=== PATIENT | female | born 2000 | race Caucasian/White ===

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

== ENCOUNTER 2022-07-20 14:02 | Emergency (ER) | payer OTHER ==
[2022-07-20 14:16] VITALS: BP 110/68; PULSE 98; RESP 18; TEMP 98.2; BMI 22.8
[2022-07-20] MEDS ORDERED: IBUPROFEN 600 MG TABLET (FP) PO ONE ×2 (14:29→15:11)
[2022-07-20] MEDS ORDERED: DICLOXACILLIN SODIUM 250 MG CAPSULE PO ONE (15:26)
== END 2022-07-20 15:40 | disposition home or self-care (01) ==
LOC: JERFT 14:02
DX: N61.0 Mastitis without abscess (principal)
CPT/HCPCS: 99283-25

== ENCOUNTER 2023-07-10 09:06 | Emergency (ER) | payer OTHER ==
[2023-07-10 09:12] VITALS: TEMP 98; BMI 23.2
[2023-07-10] MEDS ORDERED: ACETAMINOPHEN 1000 MG/100 ML BAG IVPB ONE ×2 (09:54→16:00)
[2023-07-10] MEDS ORDERED: SODIUM CHLORIDE 1,000 ML IV STA (09:54)
[2023-07-10] MEDS ORDERED: ACETAMINOPHEN INJECTION 100 ML IVPB ONE (09:58)
[2023-07-10 10:01] LABS: BASO % 0.4 % (0-2.0); EOS % 0.6 % (0-4.5); HEMATOCRIT 36.9 % (32.4-45.2); HEMOGLOBIN 12.2 GM/dL (10.7-15.3); LYMPH % 27.1 % (8-40); MCH 29.6 pg (25.7-33.7); MEAN CELL VOLUME 89.6 fl (80-96); MEAN PLT VOLUME 7.3 fl (7.5-11.1); MONO % 8.3 % (3.8-10.2); NEUT % 63.6 % (42.8-82.8); PLATELET COUNT 370 10^3/uL (134-434); RBC 4.12 M/mm3 (3.60-5.2); RDW 15.2 % (11.6-15.6); WHITE BLOOD COUNT 7.7 K/mm3 (4.0-10.0)
[2023-07-10 10:03] LABS: URINE APPEARANCE CLEAR; URINE BILIRUBIN NEGATIVE (NEGATIVE); URINE COLOR YELLOW; URINE GLUCOSE (UA) NEGATIVE (NEGATIVE); URINE KETONE TRACE (NEGATIVE); URINE LEUK ESTERASE NEGATIVE (NEGATIVE); URINE NITRITE NEGATIVE (NEGATIVE); URINE PROTEIN NEGATIVE (NEGATIVE); URINE UROBILINOGEN 0.2 mg/dL (0.2-1.0)
[2023-07-10 10:18] LABS: POTASSIUM 3.7 mmol/L (3.5-5.1)
[2023-07-10 10:19] LABS: CALCIUM 9.6 mg/dL (8.5-10.1)
[2023-07-10 10:20] LABS: ALBUMIN 3.8 g/dl (3.4-5.0); BLOOD UREA NITROGEN 9.3 mg/dL (7-18)
[2023-07-10 10:23] LABS: CREATININE 0.9 mg/dL (0.55-1.3)
[2023-07-10 10:25] LABS: BILIRUBIN,TOTAL 0.6 mg/dL (0.2-1); TOT PROT 7.7 g/dl (6.4-8.2)
[2023-07-10] MEDS ORDERED: AZITHROMYCIN 500 MG TABLET PO ONE (16:24)
[2023-07-10 16:28] VITALS: BP 102/64; PULSE 74; RESP 16
[2023-07-10] MEDS ORDERED: AZITHROMYCIN 500 MG TABLET ONE (16:32)
== END 2023-07-10 16:49 | disposition home or self-care (01) ==
LOC: JER 09:06
PROC: 3E033NZ Introduction of Analgesics, Hypnotics, Sedatives into Peripheral Vein, Percutaneous Approach (ICD-10-PCS; principal; 2023-07-10)
PROC: 3E023GC Introduction of Other Therapeutic Substance into Muscle, Percutaneous Approach (ICD-10-PCS; 2023-07-10)
PROC: 3E0337Z Introduction of Electrolytic and Water Balance Substance into Peripheral Vein, Percutaneous Approach (ICD-10-PCS; 2023-07-10)
DX: O26.891 Other specified pregnancy related conditions, first trimester (principal); R10.30 Lower abdominal pain, unspecified; R10.2 Pelvic and perineal pain; O23.591 Infection of other part of genital tract in pregnancy, first trimester; N73.9 Female pelvic inflammatory disease, unspecified; Z3A.00 Weeks of gestation of pregnancy not specified
CPT/HCPCS: 36415; 76705-TC; 76817-TC; 76856-TC; 80053; 81003; 84702; 85025; 86850; 86900; 86901; 87086; 87491; 87591; 87661; 99284-25